=== PATIENT | female | born 1950 | race Caucasian/White ===

== ENCOUNTER 2019-10-11 11:20 | Day surgery (SDC) | payer OTHER ==
[~2019-10-11 11:20] MED LIST: Buffered Lidocaine 1% SYRIN* 1 ML/SYRINGE INTRADERM ONE; Famotidine IV* 10 MG/ML 2 ML (20 mg) IV ONE; Lactated Ringers 1000 ML Bag* 1,000 ML IV SCH
[2019-10-11] MEDS ORDERED: Famotidine IV* 10 MG/ML 2 ML (20 mg) ONE (11:36)
[2019-10-11] MEDS ORDERED: Propofol* 10 MG/ML 20 ML BTL ONE (12:54)
[2019-10-11] MEDS ORDERED: Ondansetron INJ* 2 MG/ML VIAL ONE (12:54)
[2019-10-11] MEDS ORDERED: Lidocaine 2% PF * 5 ML VIAL ONE (12:54)
[2019-10-11] MEDS ORDERED: Midazolam* 1 MG/ML 5 ML VIAL (5 MG) ONE (12:54)
[2019-10-11] MEDS ORDERED: fentaNYL* 50 MCG/ML 2 ML VIAL (100 MCG VIAL) ONE (12:54)
[2019-10-11] MEDS ORDERED: Dexamethasone IV* 4 MG/ML 1 ML (4 MG) ONE (12:54)
[2019-10-11] MEDS ORDERED: Lidocaine 1% w EPI 1:200,000* SDV 30 ML VIAL ONE ×2 (13:17→13:18)
[2019-10-11] MEDS ORDERED: Lidocaine 1.5% EPI 1:200,000* 30 ML SDV ONE (13:30)
[2019-10-11] MEDS ORDERED: Ketorolac INJ* 30 MG/ML 1 ML VIAL ONE (13:50)
[2019-10-11] MEDS ORDERED: Ondansetron INJ* 2 MG/ML VIAL IV PRN (14:25)
[2019-10-11] MEDS ORDERED: Acetaminophen TAB* 325 MG PO PRN (14:25)
[2019-10-11] MEDS ORDERED: fentaNYL* 50 MCG/ML 2 ML VIAL (100 MCG VIAL) IV PRN (14:25)
[2019-10-11] MEDS ORDERED: Naloxone* 0.4 MG/ML 1 ML VIAL IV PRN (14:25)
--- NOTE | 2019-10-11 14:27 | OP ---
Operative Report - Blank - Operative Report Date of Operation: 10/11/19 Note: Pre-OP Diagnoses: headache Post-op Diagnosis: same Procedure: Left TAB Surgeon: Chris Asst: none Anesthesia: local MAC Toal EBL: minimal IVF: none Specimen: portion of temporal artery Drains: none
[2019-10-11 15:29] VITALS: BP 110/55
--- NOTE | 2019-10-12 01:36 | OP ---
CC: Dr. Nidia Mckee; Dr. Riky Grant * DATE OF OPERATION: 10/11/19 - [facility] DATE OF : 54 SURGEON: Clinton Perez MD INTERNET NETWORK SPECIALIST: None. ANESTHESIOLOGIST: Dr. Flores. ANESTHESIA: Local MAC. PRE-OP DIAGNOSIS: Headache. POST-OP DIAGNOSIS: Headache. OPERATIVE PROCEDURE: Left temporal artery biopsy. ESTIMATED BLOOD LOSS: Minimal. FLUIDS: Minimal crystalloid fluid given. SPECIMENS: A 3 cm portion of left temporal artery. DRAINS: None. COMPLICATIONS: None. DESCRIPTION OF PROCEDURE: The patient was identified in the preoperative area. The left temporal region was palpated. The patient was marked, taken to the operating room and placed on the operating room table in a supine position. Gentle sedation was given. The patient's hair overlying the left temporal region was clipped. The area was prepped and draped in a standard surgical fashion. Cotton ball placed in the ear, time-out performed. After injection of lidocaine with epinephrine, at the proposed incision site, a curvilinear incision was made at the temporal region, dissected down through the temporal parietal facia and the branch of the temporal artery was identified. We dissected this free superior and inferiorly and placed a clip superior and inferior and ligated it, measured it just under 3 cm. Wound was then irrigated. We closed the defect in 2 layer fashion. Sterile dressing was applied. The patient tolerated the procedure well. [id number] #: [id number] MTDD
== END 2019-10-11 15:31 | disposition home or self-care (01) ==
LOC: OR 11:20
PROVIDERS: ATTEND Surgery
DX: R51 Headache (principal); F41.8 Other specified anxiety disorders; E11.8 Type 2 diabetes mellitus with unspecified complications; R91.1 Solitary pulmonary nodule; J45.909 Unspecified asthma, uncomplicated; Z79.52 Long term (current) use of systemic steroids; Z87.891 Personal history of nicotine dependence; Z79.51 Long term (current) use of inhaled steroids
CPT/HCPCS: 88305; J1100; J1885; J2001; J2250; J2405; J2704; J3010

== ENCOUNTER 2019-10-12 03:23 | Emergency (ER) | payer OTHER ==
--- NOTE | 2019-10-12 04:03 | ED ---
Complex/Multi-Sys Presentation - HPI Summary HPI Summary: 68 year old F arriving via private car to [facility] accompanied by complains of worsening bleeding at site of temporal arterial biopsy since 2199. Had temporal arterial biopsy done yesterday 10/[address] Perez. Went home after the biopsy, laid in bed, took a long nap, had dinner, was doing well. She noticed bleeding at the site around 10/10 so she placed extra bandaids before going to bed. She had no pain or swelling at that time. She woke up at 0300 today covered in blood and with pain and swelling. The patient rates the pain 9/10 in severity. Symptoms aggravated by nothing. Symptoms alleviated by nothing. Medications reviewed. Not on anticoagulants. She was not given any pain medications after the biopsy yesterday. Allergies noted. Home Medications Medication Instructions Recorded Confirmed Type Albuterol INH (Proventyl)(NF) 1 puff INH BID PRN 08/03/14 10/04/19 History [Proventil Hfa] Multivitamin [Multi Vitamin Daily] 1 tab PO QAM 08/03/14 10/11/19 History buPROPion SR TAB* [Wellbutrin SR 300 mg PO QAM 08/03/14 10/11/19 History TAB*] lamoTRIgine [Lamictal] 150 mg PO QAM 08/03/14 10/11/19 History LORazepam TAB(*) [Ativan 1 MG TAB 1 mg PO BEDTIME PRN 09/11/19 10/11/19 History (*)] Sertraline* [Zoloft*] 200 mg PO QAM 09/11/19 10/11/19 History predniSONE [Prednisone 20 MG TAB] 60 mg PO QAM 10/04/19 10/11/19 History Fluticasone Propion/Salmeterol 1 puff INH BID PRN 10/11/19 10/11/19 History [Wixela 100-50 Inhub] - History Of Current Complaint Chief Complaint: EDGeneral Hx Obtained From: Patient Onset/Duration: Lasting Hours - 6, Still Present Timing: Constant Severity Currently: Severe - 9 Aggravating Factor(s): Nothing Alleviating Factor(s): Nothing - Allergies/Home Medications Allergies/Adverse Reactions: Allergies Allergy/AdvReac Type Severity Reaction Status Date / Time benzonatate Allergy Rash Verified 10/12/19 03:29 evironmental Allergy Sneezing Uncoded 10/12/19 03:29 Home Medications: Home Medications Albuterol INH (Proventyl)(NF) [Proventil Hfa] 1 puff INH BID PRN 08/03/14 [ History Confirmed 10/04/19] Multivitamin [Multi Vitamin Daily] 1 tab PO QAM 08/03/14 [History Confirmed 06/21] buPROPion SR TAB* [Wellbutrin SR TAB*] 300 mg PO QAM 08/03/14 [History Confirmed 10/11/19] lamoTRIgine [Lamictal] 150 mg PO QAM 08/03/14 [History Confirmed 10/11/19] LORazepam TAB(*) [Ativan 1 MG TAB (*)] 1 mg PO BEDTIME PRN 09/11/19 [History Confirmed 10/11/19] Sertraline* [Zoloft*] 200 mg PO QAM 09/11/19 [History Confirmed 10/11/19] predniSONE [Prednisone 20 MG TAB] 60 mg PO QAM 10/04/19 [History Confirmed 10/10] Fluticasone Propion/Salmeterol [Wixela 100-50 Inhub] 1 puff INH BID PRN [History Confirmed 10/11/19] PMH/Surg Hx/FS Hx/Imm Hx Endocrine/Hematology History: Denies: Hx Bone Marrow Disease, Hx Diabetes, Hx Sickle Cell Disease, Hx Thyroid Disease, Hx Anemia Cardiovascular History: Denies: Hx Angina, Hx Cardiomegaly, Hx Congestive Heart Failure, Hx Coronary Artery Disease, Hx Hypertension, Hx Pacemaker/ICD, Hx Peripheral Vascular Disease, Hx Rheumatic Fever, Hx Valvular Heart Disease, Other Cardiovascular Problems/Disorders Respiratory History: Reports: Hx Asthma - ON INHALER Denies: Hx Chronic Obstructive Pulmonary Disease (COPD), Hx Pulmonary Edema, Hx Pulmonary Embolism, Hx Sleep Apnea, Other Respiratory Problems/Disorders GI History: Denies: Hx Cirrhosis, Hx Crohn's Disease, Hx Gastroesophageal Reflux Disease , Hx Hiatal Hernia, Hx Irritable Bowel, Hx Jaundice, Hx Ulcer, Other GI Disorders History: Denies: Hx Kidney Infection, Hx Kidney Stones, Other Problems/Disorders Musculoskeletal History: Reports: Hx Bursitis - LEFT SHOULDER Denies: Hx Arthritis, Hx Tendonitis, Other Musculoskeletal History Sensory History: Reports: Hx Contacts or Glasses - GLASSES, Hx Glaucoma - NO MEDS AT PRES. -WATCHING ONLY Denies: Hx Cataracts, Hx Hearing Aid Opthamlomology History: Reports: Hx Contacts or Glasses - GLASSES, Hx Glaucoma - NO MEDS AT PRES. -WATCHING ONLY Denies: Hx Cataracts Neurological History: Denies: Hx Headaches, Hx Migraine, Hx Nerve Disease, Hx Seizures, Other Neuro Impairments/Disorders Psychiatric History: Reports: Hx Anxiety - ON MEDIC., Hx Depression - ON MEDIC. - Cancer History Hx Chemotherapy: No - Surgical History Surgery Procedure, Year, and Place: TUBAL. tonsillectomy. VEIN STRIPPING Hx Anesthesia Reactions: No Infectious Disease History: No Infectious Disease History: Denies: Hx Hepatitis, Hx Human Immunodeficiency Virus (HIV), Traveled Outside the [place] in Last 30 Days - Family History Known Family History: Positive: Other - breast CA - Social History Alcohol Use: Daily Alcohol Amount: 2 GLASSES OF WINE Substance Use Type: Reports: None Hx Tobacco Use: Yes Smoking Status (MU): Former Smoker Type: Cigarettes Amount Used/How Often: <1 PPD X 30 YRS Review of Systems Negative: Fever Positive: Other - bleeding, pain, swelling at site of temporal arteritis biopsy All Other Systems Reviewed And Are Negative: Yes Physical Exam - Summary Physical Exam Summary: Appearance: Well-appearing, Well-nourished, lying in bed comfortable Skin: Warm, dry, no obvious rash; The dressing was removed from left temporal artery biopsy site. Steri strips are still in place. No signs of active bleeding. Steri strips are left in place. Eyes: sclera anicteric, no conjunctival pallor HENT: mucous membranes moist Neck: deferred Respiratory: No signs of respiratory distress Cardiovascular: Appears well perfused, pulses are nml Abdomen: deferred Musculoskeletal: Moving all 4 extremities without obvious discomfort Neurological: Awake and alert, mentation is normal, speech is fluent and appropriate Psychiatric: affect is normal, does not appear anxious or depressed Triage Information Reviewed: Yes Vital Signs On Initial Exam: Initial Vitals Temp Pulse Resp BP Pulse Ox 97.7 F 73 16 135/72 98 10/12/19 03:25 10/12/19 03:25 10/12/19 03:25 10/12/19 03:25 10/12/19 03:25 Vital Signs Reviewed: Yes Procedures - Sedation Patient Received Moderate/Deep Sedation with Procedure: No Diagnostics - Vital Signs Vital Signs Temp Pulse Resp BP Pulse Ox 10/12/19 03:25 97.7 F 73 16 135/72 98 - Laboratory Lab Statement: Any lab studies that have been ordered have been reviewed, and results considered in the medical decision making process. Re-Evaluation - Re-Evaluation First Eval Re-Evaluation Time: 05:12 Change: Improved - patient agrees to d/c Complex Multi-Symp Course/Dx Course Of Treatment: 68 y/o F c/o worsening bleeding, pain, swelling at site of left temporal artery biopsy since 10/10. Had temporal arteritis biopsy done yesterday 10/10. Noticed small amount of bleeding at 2200 yesterday. Woke up at 0300 today covered in blood and with pain and swelling. In the ED course, the patient was given Percocet. Compression wrap placed. Patient will be discharged home with prescription for Percocet and follow up from Dr. Perez in the morning. Patient was instructed to return to Emergency Department for new or worsening symptoms. Patient understands and is agreeable to this plan. - Diagnoses Provider Diagnoses: Postoperative bleeding from incision Discharge ED - Sign-Out/Discharge Documenting (check all that apply): Patient Departure - Discharge Plan Condition: Good Disposition: HOME Referrals: Clinton Perez MD [Medical Doctor] - 1 Day Additional Instructions: Leave the pressure wrap in place until you can touch base with Dr. Perez's office in the morning. - Billing Disposition and Condition Condition: GOOD Disposition: Home - Attestation Statements Document Initiated by Raheel: Yes Documenting Scribe: Lily Nathan Provider For Whom Raheel is Documenting (Include Credential): Yoni Cedillo MD Scribe Attestation: ILily, scribed for Yoni Cedillo MD on 10/17/19 at 2220. Scribe Documentation Reviewed: Yes Provider Attestation: The documentation as recorded by the Lily flores accurately reflects the service I personally performed and the decisions made by me, Yoni Cedillo MD Status of Scribpamela Document: Viewed
[2019-10-12] MEDS ORDERED: oxyCODONE/Acetamin 5/325 MG* TAB PO ONE (04:14)
[2019-10-12 05:38] VITALS: BP 132/75
== END 2019-10-12 05:35 | disposition home or self-care (01) ==
LOC: ED 03:23
DX: L76.22 Postprocedural hemorrhage of skin and subcutaneous tissue following other procedure (principal); F41.9 Anxiety disorder, unspecified; J45.909 Unspecified asthma, uncomplicated; Z88.8 Allergy status to other drugs, medicaments and biological substances; Z87.891 Personal history of nicotine dependence
CPT/HCPCS: 99282; A9270-GY